=== PATIENT | male | born 1970 | race Caucasian/White ===

== ENCOUNTER → 2024-03-14 07:19 | Outpatient (REF) | payer OTHER, SELFPAY | LOC: RCS 07:19 | PROVIDERS: ATTENDING PHYSICIAN Internal Medicine; FAMILY PHYSICIAN Family Medicine | DX: R60.0 Localized edema (principal); I48.4 Atypical atrial flutter; Z98.890 Other specified postprocedural states; I35.1 Nonrheumatic aortic (valve) insufficiency; I77.810 Thoracic aortic ectasia; I45.4 Nonspecific intraventricular block | CPT/HCPCS: 93306 ==

== ENCOUNTER 2025-05-21 20:04 | Emergency (ER) | payer OTHER, SELFPAY ==
[2025-05-21 20:15] VITALS: BP 155/77
[2025-05-21 20:47] LABS: Hematocrit 45.6 % (39.0-52.0); Hemoglobin 15.1 g/dL (13.0-18.0); Mean Corp Hgb Conc. 33.1 g/dL (33.0-37.0); Mean Corpuscular Volume 84.9 fL (80.0-94.0); Nucleated Red Blood Cells % 0 % (-); Platelet Count 182 10^3/uL (130-400); Red Cell Dist. Width 13.2 % (11.5-14.5)
[2025-05-21 20:58] LABS: APTT 28.0 Sec (23.4-35.0)
[2025-05-21 21:07] LABS: ALT (SGPT) 28 U/L (0-50); AST (SGOT) 25 U/L (17-59); Albumin 4.3 g/dl (3.5-5.0); Alkaline Phosphatase 48 U/L (38-126); Blood Urea Nitrogen 28 mg/dl (9-20); Calcium 9.1 mg/dl (8.4-10.2); Carbon Dioxide 28 mmol/L (22-30); Chloride 105 mmol/L (98-107); Glucose 100 mg/dl (70-99); Potassium 4.5 mmol/L (3.5-5.1); Sodium 138 mmol/L (135-145); Total Protein 6.9 g/dl (6.3-8.2); eGFR > 60.00
[2025-05-21 21:12] LABS: Troponin I < 0.012 ng/ml
[2025-05-21 22:35] VITALS: BP 115/65
[2025-05-21 23:00] VITALS: BP 107/60
[2025-05-21 23:13] VITALS: BMI 36.5
--- NOTE | 2025-05-22 00:43 | ED.GENMED ---
History of Present Illness
General
Chief Complaint: Cardiac Symptoms
Source: patient and spouse
Exam Limitations: none
Time Seen by Provider: 05/21/25 23:02
Nursing documentation reviewed up to this point in time: agreed with
History of Present Illness
History of Present Illness:
54-year-old male past medical history of hypertension hyperlipidemia presenting to the emergency department today with concerns of palpitations prior to arrival. Took diltiazem and route which was slightly earlier than his typical dosing which he
does take once daily. He did miss a dose 2 days ago did have an episode of A-fib in the past. He had his cardiac mobile device that claimed possible A-fib. He denies any ongoing symptoms at this point.
Past History
Past History
ED Past Medical History: Valvular disease and Other (Mitral valve prolapse with regurgitation, migraine headaches)
ED Past Surgical History: Cardiac (Mitral valve repair not on Coumadin)
Social History
Tobacco: Non-smoker
Alcohol: None
Drug: None
Personal:
Living: with family
Employment: Employed
Family History
Family History: Hypertension; Negative Early CAD or CAD
Review of Systems
Review of Systems
Allergies reviewed?: Yes
All Other Systems: ROS reviewed and negative except as documented in HPI and ROS
Phy Exam
Physical Exam
Physical Exam:
GENERAL: Alert , in no apparent distress
EYE: pupils equal and reactive
NECK: Supple, no significant adenopathy.
ENT: o/p clr, mmm.
CARDIAC: Regular rate and rhythm .
LUNGS: Clear breath sounds bilaterally, no acute respiratory distress, no wheezes/rales/rhonchi
ABDOMEN: Soft, without focal tenderness, no r/g, no cvat
NEUROLOGICAL: Alert and oriented, no focal neuro deficits
SKIN: Warm and dry, skin intact.
MUSCULOSKELETAL: No edema, well perfused.
PSYCH: Normal and appropriate interaction.
Course
Orders/Labs/Results
Orders:
Orders
05/21/25 20:05
Electrocardiogram (*1) Urgent
Reason for Study: Atrial Fibrillation
EKG- Treatment ONCE
05/21/25 20:36
Complete Blood Count/With Diff Urgent
Comprehensive Metabolic Panel Urgent
PTT Urgent
TSH Reflex To Free T4 Urgent
Troponin I Urgent
Abnormal Lab Results
05/21/25
20:36
MPV 10.8 H fL
(7.4-10.4)
BUN 28 H mg/dl
(9-20)
Glucose 100 H mg/dl
(70-99)
05/21/25 20:36
05/21/25 20:36
Vital Signs
Initial and Last Documented VS:
Initial Vital Signs
Temp Pulse Resp BP Pulse Ox
98.8 F 60 16 155/77 96
05/21/25 20:15 05/21/25 20:15 05/21/25 20:15 05/21/25 20:15 05/21/25 20:15
Last Documented Vital Signs
Temp Pulse Resp BP Pulse Ox
98.8 F 60 11 107/60 95
05/21/25 20:15 05/21/25 23:03 05/21/25 22:45 05/21/25 23:00 05/22/25 00:46
MDM/Problems Addressed
MDM/Problems Addressed:
54-year-old male presenting to the emergency department today with concerns of palpitations and irregular heart rate. He had a [employer] mobile device at home that read as possible A-fib. This was reviewed by myself but did appear to have P waves.
Here he does have sinus arrhythmia that could explain the findings. Here he is well-appearing no distress labs showing slightly elevated BUN which he was notified of troponin negative EKG without emergent changes. Patient vies for close cardiac
follow-up otherwise return precautions given.
*Pulse Oximetry
SaO2: 95
Oxygen Mode of Delivery: Room air
Patient hypoxic: no (95)
*Critical Care Note
Total Time (30-74mins, 75-104mins- exclusive of procedures): Not Applicable
ED Attending Note
-
Portions of this chart may have been created with voice recognition software.� Occasional wrong word or��sound alike� substitutions may have occurred due to the inherent limitations of voice recognition software.
Discharge Plan
Departure
Patient Disposition: Home (Routine Discharge)
Date of Disposition: 05/22/25
Time of Disposition: 00:44
Patient with high blood pressure during this ER visit?: No
Condition: Good
Covid-19: Not Applicable
Discharge Problem:
Palpitations, Sinus arrhythmia
Instructions: Chest Pain CBC Follow Up
Prescriptions:
No Action
aspirin [Adult Aspirin Regimen] 81 MG tablet,delayed release (DR/EC)
81 mg PO PRN PRN (Reason: stress migraine)
furosemide 40 MG tablet
40 mg PO DAILY Qty: 10 0RF
Rx Instructions:
take for 10 days then stop
acetaminophen 325 MG tablet
650 mg PO Q4HPRN PRN (Reason: MILD PAIN OR FEVER > 101F) Qty: 90 0RF
potassium chloride [Klor-Con M20] 20 MEQ tablet,ER particles/crystals
20 meq PO DAILY Qty: 10 0RF
Rx Instructions:
take for 10 days then stop
pantoprazole 40 MG tablet,delayed release (DR/EC)
40 mg PO DAILY Qty: 30 0RF
Rx Instructions:
take for 30 days then stop
oxycodone 5 MG tablet
5 mg PO Q4HPRN PRN (Reason: moderate pain) Qty: 50 0RF
Rx Instructions:
ongoing therapy for postoperative pain
hydrocodone-acetaminophen 1 TABLET tablet
1 tab PO Q4HPRN PRN (Reason: pain) Qty: 10 0RF
methylprednisolone [Medrol (Jony)] 4 MG tablets,dose pack
4 tab PO . DIRECT Qty: 1 0RF
prednisone 50 MG tablet
50 mg PO DAILY Qty: 5 0RF
albuterol sulfate [Proventil HFA] 90 MCG/PUFF HFA aerosol inhaler
1 puff inhalation Q4HPRN PRN (Reason: shortness of breath) Qty: 1 0RF
levofloxacin 500 MG tablet
500 mg PO DAILY Qty: 7 0RF
diltiazem HCl [Tiadylt ER] 120 MG capsule,extended release 24 hr
120 mg PO Daily Qty: 30 0RF
Referrals:
Helio Wilson MD [Family Provider, [facility]]
Activity Restrictions/Additional Instructions:
You came to the emergency department today with concerns of potential arrhythmia. Here is found to be likely a sinus arrhythmia. Remainder of your workup was reassuring. Please follow closely with cardiology. Return for any worsening, new or
concerning symptoms.
Interventions
Interventions:
*Risk Screen - Suicide Last Done: 05/21/25 23:03
*General Assessment Last Done: 05/22/25 01:03
*Neglect/Abuse Screening Last Done: 05/21/25 23:03
*ED- Fall Risk Assessment Last Done: 05/21/25 23:03
*ED COVID-19 Vaccine History Last Done: 05/21/25 23:03
*Nursing Disposition Last Done: 05/22/25 01:03
ED- Cardiac Assessment Last Done: 05/21/25 23:14
ED- Pulmonary Assessment Last Done: 05/21/25 23:14
Discharge Date and Time
Discharge Date/Time: 05/22/25 01:05
Print Language: OCCITAN
== END 2025-05-22 01:05 | disposition home or self-care (01) ==
LOC: EMR 20:04
PROVIDERS: Emergency Medicine; EMERGENCY PHYSICIAN Emergency Medicine; FAMILY PHYSICIAN Family Medicine
DX: R00.2 Palpitations (principal); I49.8 Other specified cardiac arrhythmias; I48.91 Unspecified atrial fibrillation; I10 Essential (primary) hypertension; E78.5 Hyperlipidemia, unspecified; Z79.82 Long term (current) use of aspirin; T46.1X6A Underdosing of calcium-channel blockers, initial encounter; Z91.148 Patient's other noncompliance with medication regimen for other reason; Z82.49 Family history of ischemic heart disease and other diseases of the circulatory system
CPT/HCPCS: 99284; 80053; 84443; 84484; 85025; 85730; 93005